=== PATIENT | male | born 1935 | race Caucasian/White ===

== ENCOUNTER → 2016-09-08 | Outpatient (CLI) | payer OTHER, MEDICARE ==
[2016-09-08 17:44] LABS: BUN/CREATININE RATIO 21.81 (6-20); CALCIUM 9.4 mg/dL (8.7-10.7); CHOL/HDL RATIO 2.48 RATIO (0-4.0); HEMOGLOBIN A1C 5.79 % (4.2-6.0); LDL CHOLESTEROL,CALCULATED 70.2 mg/dL; SERUM ALBUMIN 4.5 g/dL (3.5-4.8)
== END ==
LOC: LAB 08:17
PROVIDERS: ATTEND Nurse Practitioner Family
DX: R73.01 Impaired fasting glucose (principal); E78.5 Hyperlipidemia, unspecified; I10 Essential (primary) hypertension
CPT/HCPCS: 80053; 80061; 83036